=== PATIENT | female | born 1990 | race African-American/Black ===

== ENCOUNTER 2018-12-18 16:18 | Emergency (ER) | payer MEDICAID ==
[~2018-12-18] VITALS: Ht 162.6 cm; Wt 81.6 kg
[2018-12-18 16:25] VITALS: BP 132/104
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
--- NOTE | 2018-12-18 16:48 | NUR ---
PT AMBULATED TO ER BED 4
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
--- NOTE | 2018-12-18 17:23 | NUR ---
[employer]ER [employer] [place] [employer] AT BEDSIDE SPEAKING WITH PT.
[2018-12-18] MEDS ORDERED: IBUPROFEN 600 MG TAB PO ONE (17:25)
[2018-12-18] MEDS ORDERED: LORazepam 1 MG TAB PO ONE (18:25)
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
[2018-12-18] MEDS ORDERED: ALPRAZolam 0.5 MG TAB PO ONE (18:45)
--- NOTE | 2018-12-18 18:50 | NUR ---
ER MD HO SPEAKING WITH [place] .
--- NOTE | 2018-12-18 19:06 | NUR ---
Patient discharged with v/s stable. Written and verbal after care instructions given and explained. Patient alert, oriented and verbalized understanding of instructions. Ambulatory with steady gait. All questions addressed prior to discharge. ID band removed. Patient advised to follow up with PMD. Rx of XANAX AND IBUPROFEN given. Patient educated on indication of medication including possible reaction and side effects. Opportunity to ask questions provided and answered.
[2018-12-18 19:07] VITALS: BP 133/96
== END 2018-12-18 19:06 | disposition home or self-care (01) ==
LOC: MED 16:18
DX: M54.2 Cervicalgia (principal); F31.9 Bipolar disorder, unspecified; Y08.89XA Assault by other specified means, initial encounter; Y93.89 Activity, other specified; Y92.89 Other specified places as the place of occurrence of the external cause; Y99.8 Other external cause status
CPT/HCPCS: 99283